=== PATIENT | female | born 1975 | race American Indian/Alaskan Native ===

== ENCOUNTER 2019-08-06 18:00 | Emergency (ER) | payer OTHER ==
--- NOTE | 2019-08-06 18:20 | Emergency Department Report ---
Blank Doc - Documentation Documentation: 44-year-old female that presents with vertigo and nausea. This initial assessment/diagnostic orders/clinical plan/treatment(s) is/are subject to change based on patient's health status, clinical progression and re- assessment by fellow clinical providers in the ED. Further treatment and workup at subsequent clinical providers discretion. Patient/guardians urged not to elope from the ED as their condition may be serious if not clinically assessed and managed. Initial orders include: 1- Patient sent to [facility] for further evaluation and treatment 2- labs 3- UA
[2019-08-06 18:41] LABS: Basophils % (Auto) 0.3 % (0.0-1.8); Eosinophils % (Auto) 0.6 % (0.0-4.3); Hematocrit 38.1 % (30.3-42.9); Hemoglobin 12.8 gm/dl (10.1-14.3); Lymphocytes # (Auto) 1.1 K/mm3 (1.2-5.4); Lymphocytes % (Auto) 21.7 % (13.4-35.0); Mean Corpuscular HGB Conc 34 % (30-34); Mean Corpuscular Volume 90 fl (79-97); Monocytes # (Auto) 0.4 K/mm3 (0.0-0.8); Monocytes % (Auto) 7.6 % (0.0-7.3); Platelet Count 171 K/mm3 (140-440); Red Blood Count 4.23 M/mm3 (3.65-5.03); Red Cell Distribution Width 12.6 % (13.2-15.2)
[2019-08-06 19:04] LABS: BUN/Creatinine Ratio 13; Blood Urea Nitrogen 8 mg/dL (7-17); Calcium 10.7 mg/dL (8.4-10.2); Hemolysis Index 3
[2019-08-06] MEDS ORDERED: ONDANSETRON 4 MG/2 ML INJ IV ONE (22:22)
[2019-08-06] MEDS ORDERED: SODIUM CHLORIDE 0.9% 1000 ML 1,000 ML IV ONE (22:22)
[2019-08-06] MEDS ORDERED: MECLIZINE 25 MG TAB PO ONE (22:22)
--- NOTE | 2019-08-06 23:33 | Emergency Department Report ---
ED Dizziness HPI - General Chief Complaint: Dizziness Stated Complaint: SEVERE DIZZINESS Time Seen by Provider: 08/06/19 18:19 Source: patient Mode of arrival: Ambulatory Limitations: No Limitations - History of Present Illness Initial Comments: 44-year-old female with past medical history of previous vertigo presents also complains of dizziness and nausea yesterday this morning. Patient describes it as a spinning sensation causing her have to crawl this morning instead of walk. Symptoms in 2016 when she was diagnosed with vertigo. Patient took Dramamine at the time. Pt states she also head maneuvers performed by an ENT doctor. She hasn't taken any medications for vertigo today. She complains of her eyes shaking intermittently radiating into her ears. Mild bitemporal headache reported. No focal weakness, numbness, blurred vision. Patient does have a PMD - Related Data Previous Rx's Medication Instructions Recorded Last Taken Type Ibuprofen [Motrin] 600 mg PO Q8H PRN #14 tablet 08/07/19 Unknown Rx Meclizine [Antivert] 25 mg PO TID PRN #30 tablet 08/07/19 Unknown Rx Ondansetron [Zofran Odt] 4 mg PO Q8HR PRN #20 tab.rapdis 08/07/19 Unknown Rx Allergies Allergy/AdvReac Type Severity Reaction Status Date / Time No Known Allergies Allergy Unverified 08/06/19 18:13 ED Review of Systems ROS: Stated complaint: SEVERE DIZZINESS Other details as noted in HPI Comment: All other systems reviewed and negative ED Past Medical Hx - Past Medical History Previous Medical History?: No - Surgical History Past Surgical History?: Yes Additional Surgical History: tubal ligation - Social History Smoking Status: Never Smoker Substance Use Type: None - Medications Home Medications: Home Medications Medication Instructions Recorded Confirmed Last Taken Type Ibuprofen [Motrin] 600 mg PO Q8H PRN #14 tablet 08/07/19 Unknown Rx Meclizine [Antivert] 25 mg PO TID PRN #30 tablet 08/07/19 Unknown Rx Ondansetron [Zofran Odt] 4 mg PO Q8HR PRN #20 tab.rapdis 08/07/19 Unknown Rx ED Physical Exam - General Limitations: No Limitations - Other Other exam information: General: No limitations, patient is alert in no acute distress Head exam: Atraumatic, normocephalic Eyes exam: Normal appearance ENT: Moist mucous membrane, bilateral cerumen impaction Neck exam: Normal inspection, full range of motion Respiratory exam: Clear to auscultation bilateral, no wheezes, rales, crackles Cardiovascular: Normal rate and rhythm Abdomen: Soft, nondistended, and nontender, with normal bowel sounds, no rebound, or guarding, Extremity: No deformity Back: Normal Inspection Neurologic: Alert, oriented x3, speech clear, no gross motor or sensory deficit, [id number] function intact Psychiatric: Normal mood, affect Skin: No rash ED Course Vital Signs 08/06/19 08/07/19 18:19 01:30 Temperature 97.6 F 97.6 F Pulse Rate 68 69 Respiratory 18 18 Rate Blood Pressure 138/90 Blood Pressure 149/82 [Right] O2 Sat by Pulse 100 99 Oximetry - Reevaluation(s) Reevaluation #1: 08/07/19 00:54 pt feeling much better after NS, meclizine, and zofran now able to ambulate ED Medical Decision Making - Lab Data Result diagrams: 08/06/19 18:27 08/06/19 18:27 Lab Results 08/06/19 08/06/19 08/06/19 Range/Units 18:27 18:27 18:27 WBC 4.9 (4.5-11.0) K/mm3 RBC 4.23 (3.65-5.03) M/mm3 Hgb 12.8 (10.1-14.3) gm/dl Hct 38.1 (30.3-42.9) % MCV 90 (79-97) fl MCH 30 (28-32) pg MCHC 34 (30-34) % RDW 12.6 L (13.2-15.2) % Plt Count 171 (140-440) K/mm3 Lymph % (Auto) 21.7 (13.4-35.0) % Petroleum % (Auto) 7.6 H (0.0-7.3) % Eos % (Auto) 0.6 (0.0-4.3) % Baso % (Auto) 0.3 (0.0-1.8) % Lymph # 1.1 L (1.2-5.4) K/mm3 Petroleum # 0.4 (0.0-0.8) K/mm3 Eos # 0.0 (0.0-0.4) K/mm3 Baso # 0.0 (0.0-0.1) K/mm3 Seg Neutrophils % 69.8 (40.0-70.0) % Seg Neutrophils # 3.4 (1.8-7.7) K/mm3 Sodium 141 (137-145) mmol/L Potassium 3.9 (3.6-5.0) mmol/L Chloride 106.6 (98-107) mmol/L Carbon Dioxide 21 L (22-30) mmol/L Anion Gap 17 mmol/L BUN 8 (7-17) mg/dL Creatinine 0.6 L (0.7-1.2) mg/dL Estimated GFR > 60 ml/min BUN/Creatinine Ratio 13 % Glucose 120 H (65-100) mg/dL Calcium 10.7 H (8.4-10.2) mg/dL HCG, Qual Negative (Negative) - Medical Decision Making vertigo improved with ed tx, hx of same labs normal. DC with meds and PMD/ENT follow-up - Differential Diagnosis vertigo, cva, anemia, peripheral vertigo Critical Care Time: No Critical care attestation.: If time is entered above; I have spent that time in minutes in the direct care o f this critically ill patient, excluding procedure time. ED Disposition Clinical Impression: Vertigo Disposition: DC-01 TO HOME OR SELFCARE Is pt being admited?: No Does the pt Need Aspirin: No Condition: Stable Instructions: Vertigo (ED) Additional Instructions: Take the medication as prescribed. Follow-up with your doctor or with the doctor/clinic provided. Return if symptoms worsen as indicated by your discharge instructions. Prescriptions: Meclizine [Antivert] 25 mg PO TID PRN #30 tablet PRN Reason: Vertigo Ibuprofen [Motrin] 600 mg PO Q8H PRN #14 tablet PRN Reason: Pain , Severe (7-10) Ondansetron [Zofran Odt] 4 mg PO Q8HR PRN #20 tab.rapdis PRN Reason: Nausea And Vomiting Referrals: PRIMARY CARE, [Primary Care Provider] - 3-5 Days HATTIE PALACIOS MD [Staff Physician] - 3-5 Days Time of Disposition: 00:56
[2019-08-07 01:35] VITALS: BP 149/82
== END 2019-08-07 01:30 | disposition home or self-care (01) ==
LOC: ED 18:00
DX: R42 Dizziness and giddiness (principal); R11.0 Nausea; Z98.51 Tubal ligation status; Z79.899 Other long term (current) drug therapy
CPT/HCPCS: 36415; 80048; 84703; 85025; 96361; 96374; 99283; J2405; J7030; 96367